=== PATIENT | male | born 1990 | race Caucasian/White ===

== ENCOUNTER 2017-11-05 07:26 | Outpatient (CLI) | payer OTHER, SELFPAY ==
--- NOTE | 2017-11-05 07:58 | DI.REPORT_ITS ---
SYMPTOM/DIAGNOSIS: LUMP WITH TUGGING, SWELLING RT TESTICLE, TENDERNESS, ? VARICOCELE OR EPIDIDYMAL CYST, NEG HERNIA CHECK TESTICULAR ULTRASOUND: Routine examination. The right testicle measures 4.6 x 3 x 2.6 cm. The left testicle measures 4.2 x 2.7 x 2.3 cm. No testicular mass is seen. There is normal blood flow to the testicle. No evidence of torsion is seen. The right epididymis appears unremarkable except for a 0.4 x 0.3 cm cyst. The left epididymis appears unremarkable. No enhancing or enlarging veins are seen with Valsalva. IMPRESSION: No evidence of a testicular mass or torsion.
== END 2017-11-05 07:27 ==
PROVIDERS: PCP Nurse Practitioner Adult Health; Visit Provider Nurse Practitioner Adult Health
DX: N50.9 Disorder of male genital organs, unspecified (principal); N50.811 Right testicular pain; N50.3 Cyst of epididymis
CPT/HCPCS: 76870